=== PATIENT | male | born 2000 | race Caucasian/White ===

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

== ENCOUNTER 2022-02-06 12:14 | Emergency (ER) | payer BC ==
[~2022-02-06] VITALS: Ht 167.6 cm; Wt 57.3 kg
[2022-02-06 13:43] VITALS: BP 115/69; PULSE 50; TEMP 98
== END 2022-02-06 13:45 | disposition home or self-care (01) ==
LOC: COL.ER 12:14
DX: S05.12XA Contusion of eyeball and orbital tissues, left eye, initial encounter (principal); F17.210 Nicotine dependence, cigarettes, uncomplicated; Y04.8XXA Assault by other bodily force, initial encounter